=== PATIENT | male | born 1955 | race American Indian/Alaskan Native ===

== ENCOUNTER 2017-04-21 07:00 | Day surgery (SDC) | payer MEDICARE, BC ==
[2017-04-13 12:32] VITALS: BMI 17.8
--- NOTE | 2017-04-21 01:56 | HP ---
REASON FOR ADMISSION: Complete heart catheterization; abnormal stress test; aortic stenosis; end-stage renal disease, on dialysis. BRIEF CLINICAL HISTORY: This is a 61-year-old male with a past medical history of end-stage renal disease, on dialysis on Tuesday, Tuesday and Tuesday; aortic stenosis, moderate, complaining of dyspnea on exertion and tightness in the chest, so the patient underwent a stress test that showed a new reversible ischemia since 08/05/2015, anteroseptal wall ischemia, a new since 08/05/2015 from the previous stress test, so the patient is scheduled for elective cardiac catheterization, possible angioplasty. PAST HISTORY: Significant for aortic stenosis, moderate, valve area of 1.3 cm sq, ejection fraction of 45% to 50%. Cardiomyopathy, end-stage renal disease, hypertension, and hyperlipidemia. SOCIAL HISTORY: Denies smoking. Denies any history of alcohol abuse. Most recent cardiac workup as follows: The patient underwent stress test dated 03/22/2017, IVD thallium Lexiscan does show small distal anteroseptal reversible ischemia with ejection fraction of 50%. This reversible ischemia is new since . Pertinent echocardiography on 03/22/2017 does show moderate aortic valve area of 1.3 cm sq with ejection fraction of 45% to 50%. CURRENT MEDICATIONS: The patient is taking Renagel, omega-3, metoprolol 50 mg twice a day, Xalatan eye drops, Sensipar 60 mg p.o. nightly, aspirin 81 mg, amlodipine 10 mg, p.o. t.i.d. ALLERGIES: NO KNOWN DRUG ALLERGIES. Dialysis on Tuesday, Tuesday and Tuesday, three times a week. PHYSICAL EXAMINATION: As follows: VITAL SIGNS: Height of the patient 5 feet 8 inches, weight of the patient is 127 pounds, body mass index of 19 kg per sq m, blood pressure 120/80, heart rate 64. HEENT: PERRLA, intact. NECK: Supple. No carotid bruits, JVD, or thyromegaly. LUNGS: Clear to auscultation. HEART: S1 and S2 regular. ABDOMEN: Soft. EXTREMITIES: Clubbing and cyanosis negative. IMPRESSION: Abnormal stress test showing anteroseptal reversible ischemia, aortic stenosis, moderate valve area of 1.3 cm sq; hypertension; hyperlipidemia; end-stage renal disease, on dialysis. RECOMMENDATIONS: Complete right heart cath and possible angioplasty. Risks, benefits and alternatives were discussed with the patient. The patient agreed, and we will proceed for the cardiac catheterization. Further recommendation after the cardiac catheterization. Thank you Dr. Orta for providing us the opportunity in taking care of this patient, [place]. Golden Prakash MD cc: Emmy Orta MD
[2017-04-21] MEDS ORDERED: Lidocaine 2% Inj (20ml) ONE (07:35)
[2017-04-21] MEDS ORDERED: Iodixanol 320 MG/ML 200 ML BOTTLE IV ONE (07:36)
[2017-04-21] MEDS ORDERED: HEPARIN SODIUM/NS 2,000 ML IV ONE ×2 (07:38→09:31)
[2017-04-21 07:44] LABS: BASO # 0.04 K/mm3 (0.0-2.0); BASO % 0.6 % (0.0-3.0); EOS # 0.9 (0.0-0.7); GRAN # 4.52 (1.4-6.5); GRAN % 65.9 % (50.0-68.0); HEMOGLOBIN 9.9 g/dL (14.0-18.0); LYMPH % 14.5 % (22.0-35.0); MEAN CORPUSCULAR HEMOGLOBIN 28.2 pg (25.0-35.0); MEAN CORPUSCULAR HGB CONC 31.3 g/dl (31.0-37.0); MONO # 0.4 (0.1-0.6); RBC 3.51 10^6/uL (3.5-6.1); RED CELL DISTRIBUTION WIDTH 18.7 % (11.5-14.5); WHITE BLOOD COUNT 6.9 10^3/ul (4.5-11.0)
[2017-04-21 07:54] LABS: INR 1.24 (0.93-1.08); PARTIAL THROMBOPLASTIN TIME 30.7 Seconds (25.1-36.5); PROTHROMBIN TIME 14.3 SECONDS (9.4-12.5)
[2017-04-21 07:55] LABS: CALCIUM 9.1 mg/dL (8.4-10.5)
[2017-04-21] MEDS: Midazolam 2 MG/2 ML VIAL ONE ×4 (10:19→16:52)
[2017-04-21] MEDS: Eptifibatide 20 mg/10mL Inj IVP ONE ×2 (10:46→14:03)
[2017-04-21] MEDS: Morphine 2 mg/ml ISec ONE ×4 (11:00→14:04)
[2017-04-21] MEDS: Morphine 5 MG/ML SYRINGE ONE ×2 (11:28→14:04)
[2017-04-21] MEDS: Oxycodone/Acetaminophen 5/325 mg Tab PO PRN ×3 (12:40→22:35)
[2017-04-21 16:46] LABS: BASO # 0.03 K/mm3 (0.0-2.0); BASO % 0.4 % (0.0-3.0); EOS # 0.3 (0.0-0.7); EOS % 2.9 % (1.5-5.0); GRAN # 7.14 (1.4-6.5); GRAN % 83.3 % (50.0-68.0); HEMOGLOBIN 10.3 g/dL (14.0-18.0); LYMPH # 0.8 (1.2-3.4); LYMPH % 9.7 % (22.0-35.0); MEAN CELL VOLUME 90.8 fl (80.0-105.0); MEAN CORPUSCULAR HEMOGLOBIN 28.9 pg (25.0-35.0); MEAN CORPUSCULAR HGB CONC 31.8 g/dl (31.0-37.0); MEAN PLATELET VOLUME 10.7 fl (7.0-11.0); MONO # 0.3 (0.1-0.6); MONO % 3.7 % (1.0-6.0); RBC 3.57 10^6/uL (3.5-6.1); RED CELL DISTRIBUTION WIDTH 18.7 % (11.5-14.5); WHITE BLOOD COUNT 8.6 10^3/ul (4.5-11.0)
--- NOTE | 2017-04-21 17:41 | CARD ---
APPROVED REPORT EKG Measurement Heart [id number] <Conclusion> Sinus rhythm with 1st degree AV block Voltage criteria for left ventricular hypertrophy Cannot rule out Septal infarct, age undetermined Abnormal ECG
--- NOTE | 2017-04-21 17:46 | CARD ---
APPROVED REPORT EKG Measurement Heart [id number] <Conclusion> Normal sinus rhythm Voltage criteria for left ventricular hypertrophy Cannot rule out Septal infarct, age undetermined Abnormal ECG
--- NOTE | 2017-04-21 17:55 | CARD ---
APPROVED REPORT EKG Measurement Heart [id number] <Conclusion> Sinus rhythm with 1st degree AV block Voltage criteria for left ventricular hypertrophy Cannot rule out Septal infarct, age undetermined Abnormal ECG
[2017-04-22 08:33] LABS: BASO # 0.04 K/mm3 (0.0-2.0); BASO % 0.6 % (0.0-3.0); EOS # 0.6 (0.0-0.7); EOS % 8.5 % (1.5-5.0); GRAN # 5.23 (1.4-6.5); GRAN % 72.6 % (50.0-68.0); HEMOGLOBIN 9.8 g/dL (14.0-18.0); LYMPH # 0.8 (1.2-3.4); LYMPH % 11.4 % (22.0-35.0); MEAN CELL VOLUME 90.8 fl (80.0-105.0); MEAN CORPUSCULAR HEMOGLOBIN 28.2 pg (25.0-35.0); MEAN PLATELET VOLUME 9.8 fl (7.0-11.0); MONO # 0.5 (0.1-0.6); MONO % 6.9 % (1.0-6.0); RBC 3.48 10^6/uL (3.5-6.1); RED CELL DISTRIBUTION WIDTH 18.7 % (11.5-14.5); WHITE BLOOD COUNT 7.2 10^3/ul (4.5-11.0)
[2017-04-22 09:15] VITALS: RESP 18; O2SAT 95
[2017-04-22 09:40] LABS: MAGNESIUM 2.4 mg/dL (1.7-2.2)
[2017-04-22 15:03] VITALS: BP 153/79; PULSE 86
[2017-04-22 15:11] VITALS: TEMP 98.6
--- NOTE | 2017-04-22 20:06 | CARD ---
APPROVED REPORT EKG Measurement Heart [id number] [place] [id number] <Conclusion> Sinus rhythm with 1st degree AV block Voltage criteria for left ventricular hypertrophy Cannot rule out Septal infarct, age undetermined Prolonged QT Abnormal ECG
--- NOTE | 2017-04-22 20:16 | CON ---
DATE: 04/22/2017 REASON FOR CONSULTATION: Hyperkalemia, ESRD, and need for dialysis. HISTORY OF PRESENT ILLNESS: A 61-year-old male previously unknown to me, was admitted on 04/20/2017 for cardiac catheterization because of abnormal stress test, aortic stenosis. The patient underwent cardiac catheterization yesterday. He PTCA and stents. The patient has a history of hypertension, hypertensive heart disease, aortic stenosis, cardiomyopathy, ESRD, and hyperlipidemia. The patient was found to have a potassium of 5.7 this morning. He was also found to have elevated BUN and creatinine. Hence consultation is requested. PAST MEDICAL AND SURGICAL HISTORY: Longstanding hypertension, aortic stenosis, cardiomyopathy, hypertensive heart disease, end-stage renal disease, hyperlipidemia, CAD, PTCA and stent. SOCIAL HISTORY: No smoking, alcohol use, and no IV drug abuse. ALLERGIES: PENICILLIN. MEDICATIONS AT HOME: Renagel, omega-3, metoprolol 50 b.i.d., Sensipar 60, aspirin 81, and amlodipine 10. REVIEW OF SYSTEMS: The patient complains of shortness of breath. Complains of some chest tightness. Denies any nausea, vomiting, or diarrhea. Denies any abdominal pain. All other systems are reviewed and unremarkable. PHYSICAL EXAMINATION: GENERAL: Elderly thinly built male lying in bed in the dialysis unit. VITAL SIGNS: Blood pressure 150/74, heart rate 65, respiratory rate 18, and temperature 97.5. HEENT: Normocephalic and atraumatic. Positive pallor. NECK: Supple. No JVD. LUNGS: Bilateral equal air entry, bilateral equal expansion. CARDIAC: S1 and S2, regular rate and rhythm. No murmur. No rub. ABDOMEN: Soft, nondistended, and nontender. Bowel sounds present. EXTREMITIES: No lower extremity edema. INTAKE AND OUTPUT: Not charted. LABORATORY DATA: WBC 7.2, hemoglobin 9.8, hematocrit 32, and platelets 86. Sodium 140, potassium 5.7, chloride 94, CO2 of 29, BUN 44, creatinine 8.6, glucose 92, calcium 9.0, phosphorus 5.0, and magnesium 2.4. CURRENT MEDICATIONS: Ecotrin, Lopressor, amlodipine, Percocet, Plavix, Renagel, and Sensipar. ASSESSMENT: 1. Hyperkalemia. 2. End-stage renal disease. 3. Hypertension. 4. Coronary artery disease, percutaneous transluminal coronary angioplasty and stent. 5. Cardiomyopathy. 6. Anemia of chronic kidney disease. PLAN: 1. Stable dialysis. 2. The patient is being dialyzed with potassium two bath. 3. Ultrafiltration kg. 4. Continue Sensipar. 5. Continue phosphate binder. 6. Continue Plavix as per Cardiology recommendations. Thank you for the courtesy of this consultation. We will follow this patient with you as needed. Aditi Castro MD
--- NOTE | 2017-04-23 03:16 | CARDCATH ---
PROCEDURE DATE: 04/21/2017 CARDIAC CATH LABORATORY/CARDIAC CATH POSSIBLE ANGIOPLASTY Reason for dictation today because infittnitt system broke and could not do the dictation on [employer] system, so now is dictating today. OPERATIVE DOCTOR: Golden Prakash MD. CONTRACTS ATTORNEY: Raymond Mcqueen, contract technician is scheduling elective. PROCEDURES: 1. Left heart catheterization, complete. 2. Right heart catheterization, complete. 3. Percutaneous transluminal coronary angioplasty and stenting with a drug-eluting stent of mid left anterior descending artery. BRIEF CLINICAL HISTORY: This is a 61-year-old male with a past medical history significant for end-stage renal disease; on dialysis Tuesday, Tuesday and Tuesday; aortic stenosis, moderate; complaining of dyspnea on exertion and tightness in the chest, so the patient underwent a stress test that showed a reversible ischemia dated 03/06/2016; anteroseptal ischemia, and this is a new since 08/05/2015, so the patient is scheduled for elective cardiac catheterization, possible angioplasty. PROCEDURE TECHNIQUE: The patient was brought to the lab specialist, draped in a standard sterile fashion. Right groin punctured using Seldinger technique, 6-[place] short arterial and 7-[place] venous sheath was placed for left and right Daniel catheter for left and right heart catheterization. Left and right Daniel catheter and pigtail catheter used for coronary angiography and Rolla-Jose Luis catheter used for right heart catheterization. FINDINGS: As follows: 1. Left heart catheterization: Left main essential for significant disease, [id number] caliber vessels, heavily calcified, bifurcating to LAD and circumflex. LAD has mid 90% long tubular stenosis noted with heavily calcified artery LAD. Circumflex is a moderate caliber vessels. It shows luminal irregularity but no flow obstructive stenosis noted. Right coronary artery is a dominant, large caliber vessels, shows luminal irregularity and calcified, but no flow obstructive stenosis noted. LV gram was done that shows ejection fraction of 55%, aortic pressure 140/68, LV pressure 115/18 to 115/20, 10 to 15 mm at the most gradient noted on pullback, consistent with a mild aortic stenosis. 2. Right heart catheterization as follows: RA 13 to 14, RV 55/16, PA 56/26, mean PA 36, pulmonary capillary wedge pressure 18. Cardiac output 3.95 liter. Cardiac index 2.42 L/min. Pulmonary vascular resistance 4.5 Wood units. Aortic valve was calculated 1.1 sq cm. KRISTY 1.1 sq cm., but on pullback only 10 to 15 mm gradient noted. In view of above, PTCA of LAD was contemplated, 2500 heparin was given, and two Integrilin bolus was given, and lesion crossed with loose wire and the primary addition was done with 2.5 mm x 12 mm balloon, multiple inflation was done, then drug-coated stent 3-mm in diameter and 38-mm lens was taken and deployed at 14 atmosphere, after this 3.5 mm noncompliant balloon was taken and post deployment dilatation was done at 14 atmosphere with reduction stenosis to 90% to 0%. The patient tolerated the procedure well, returned to floor in stable condition. Postprocedure, both sheath was pulled and Mynx was applied, and the patient returned to floor in stable condition. PLAN: To continue to observe the patient and ask nephrology consult for dialysis tonight, otherwise, we will dilate the patient tomorrow. Discharge home tomorrow. In summary, following procedure was done: 1. Complete left heart catheterization that showed 90% mid LAD stenosis but preserved LV function. 2. Right heart catheterization was done that revealed RA 13/14, RV 55/16, PA 56/26, mean PA 26, pulmonary capillary wedge pressure 18, cardiac output 3.95, cardiac index 2.42, pulmonary vascular resistance 4.5 Torres unit, aortic valve area calculated 1.1 sq cm., consistent with moderate aortic stenosis. Though on pullback only 10 to 14 mm of gradient across the aortic valve noted. 4. Successful PTCA of LAD was done. Preprocedure 90% stenosis. Postprocedure 0% stenosis. Preprocedure MELODIE-2 flow, postprocedure MELODIE-3 flow was noted. Drug-eluting stent was deployed in LAD with Resolute, 3 mm in diameter and 38 mm lens was deployed and post deployed dilatation was done with 3.[address]. [address] Orta for providing us the opportunity in taking care of the patient Hilaria Oliveira. Golden Prakash MD cc: Emmy Orta MD MTDNatalya
--- NOTE | 2017-04-23 03:55 | DS ---
REASON FOR ADMISSION: Right heart cath, left heart cath, aortic stenosis status post PTCA of LAD, end-stage renal disease on dialysis. The patient feels chest pain, but feels better with Percocet. PHYSICAL EXAMINATION: GENERAL: Not in apparent distress. Lying flat on the bed. VITAL SIGNS: Temperature afebrile, heart rate ____, blood pressure 133/73. HEENT: PERRLA. Extraocular muscles intact. NECK: Supple. No carotid bruit or thyromegaly. CHEST: Clear to auscultation. HEART: S1 and S2 regular. ABDOMEN: Soft. EXTREMITIES: Clubbing and cyanosis negative. LABORATORY DATA: Blood workup as follows: WBC 7.8, hemoglobin 9.8, hematocrit 31.6, and platelet count 86,000. Chemistries shows sodium 144, potassium 5.3, chloride 94, carbon dioxide 29, anion gap of 22, BUN 44, creatinine 8.6. Magnesium 2.4. IMPRESSION: End-stage renal disease, on dialysis; status post cardiac catheterization in one vessel, percutaneous transluminal coronary angioplasty of left anterior descending mid 99% occlusion. Mild aortic stenosis with peak gradient of 15 mmHg on pull back. Abnormal stress test prior to cardiac catheterization. RECOMMENDATIONS: We will get the dialysis. After dialysis, the patient will be discharged home, followed up as outpatient. Golden Prakash MD
== END 2017-04-22 16:30 | disposition home or self-care (01) ==
LOC: CATH 07:00 → 2RSO 12:31 → CATH 04-22 16:30
PROVIDERS: ATTEND Internal Medicine Cardiovascular Disease
DX: I25.10 Atherosclerotic heart disease of native coronary artery without angina pectoris (principal); I42.9 Cardiomyopathy, unspecified; I35.0 Nonrheumatic aortic (valve) stenosis; I12.0 Hypertensive chronic kidney disease with stage 5 chronic kidney disease or end stage renal disease; N18.6 End stage renal disease; E78.5 Hyperlipidemia, unspecified; Z99.2 Dependence on renal dialysis; D63.1 Anemia in chronic kidney disease; E87.5 Hyperkalemia; Z88.0 Allergy status to penicillin
CPT/HCPCS: 36415 ×2; 80048 ×2; 83735; 84100; 85025 ×2; 85175; 85610; 85730; 86850; 86900; 93005 ×2; 93460; 99152; 99153; C1725 ×3; C1760; C1769 ×2; C1874; C1887; C1894; C2629; C9600; J1327; J1644 ×2; J2250; J2270 ×2; J2405; J3010; J7040